=== PATIENT | male | born 1965 | race Caucasian/White ===

== ENCOUNTER 2018-02-18 10:20 | Day surgery (SDC) | payer OTHER ==
[2018-02-18] MEDS ORDERED: SOD CHLORIDE 0.9% 1,000 ML IV (13:00)
[2018-02-18] MEDS ORDERED: CEFAZOLIN 2 GM/50 ML (PMX) 50 ML IVPB (13:00)
[2018-02-18] MEDS ORDERED: BUPIVACAINE 0.25% (MPF) 30 ML INJ (14:41)
[2018-02-18] MEDS ORDERED: PROPOFOL 20 ML (14:51)
[2018-02-18] MEDS ORDERED: LIDOCAINE 2% (SDV) 5 ML INJ (14:51)
[2018-02-18] MEDS ORDERED: ONDANSETRON 4 MG INJ (14:52)
[2018-02-18] MEDS ORDERED: CEFAZOLIN 1 GM INJ (14:52)
[2018-02-18] MEDS ORDERED: MEPERIDINE /PF (100 MG/2 ML) AMPULE (14:54)
[2018-02-18] MEDS ORDERED: OXYCODONE/ACETAMINOPHEN (5/325) TAB PO ×2 (15:00)
[2018-02-18] MEDS ORDERED: ONDANSETRON 4 MG INJ IV (15:00)
[2018-02-18] MEDS ORDERED: MEPERIDINE 25 MG INJ IV (15:00)
[2018-02-18] MEDS ORDERED: hydrALAzine 20 MG INJ IV (15:00)
[2018-02-18] MEDS ORDERED: MIDAZOLAM 1 MG/ML 2 ML INJ IV (15:00)
[2018-02-18] MEDS ORDERED: LABETALOL HCL 20MG INJ IV (15:00)
[2018-02-18] MEDS ORDERED: HYDROmorphONE 1 MG/5 ML IV SYRINGE IV ×3 (15:00)
[2018-02-18] MEDS ORDERED: DIPHENHYDRAMINE 50 MG INJ IV (15:00)
[2018-02-18] MEDS ORDERED: EPHEDrine SULFATE 50 MG/5 ML SYG IV (15:00)
[2018-02-18] MEDS ORDERED: HYDROCODONE/APAP (5/325) TAB PO (15:30)
[2018-02-18] MEDS: BUPIVACAINE 0.25% (MPF) 30 ML INJ (15:33)
[2018-02-18] MEDS ORDERED: NALOXONE (0.4 MG/ML) INJ (15:37)
== END 2018-02-18 17:40 | disposition home or self-care (01) ==
LOC: SDS 10:20
DX: L72.0 Epidermal cyst (principal)
CPT/HCPCS: 14001; 88307